=== PATIENT | male | born 1990 | race Caucasian/White ===

== ENCOUNTER 2021-06-25 10:01 | Emergency (ER) | payer MEDICAID, OTHER ==
[~2021-06-25] VITALS: Ht 177.8 cm; Wt 98.0 kg
[~2021-06-25 10:01] MED LIST: DIAZ5TAB4; HYDR-3972; IBUP-1955
[2021-06-25] MEDS ORDERED: BUPRENORPHINE HCL 2 MG TAB.SUBL SL ONE ×2 (10:30→10:34)
--- NOTE | 2021-06-25 10:40 | NUR ---
SS consult: SS consult requested for pt with heroin withdrawal. Pt is a 31-year-old, male. SW met with pt at his bedside in the ED. Pt was alert and oriented x4. Pt presented calm and was resting. Pt appeared appropriately groomed. [employer] officers at the bedside. Per chart pt was brought in by ambulance and [employer] officers for medical clearance on 06/25/21. Pt was given Buprenorphine by Dr. Pablo. Pt stated that he was previously living at [address] [place] [address]; [phone]. Pt has access to social support and was living with his at their private residence. Pt stated that he has no source of income. Pt stated that he has been using heroin, 2x/day and has been using the substance since age 17. Pt reported that he has had no previous treatment for heroin use in the past. Pt appears to be in the pre-contemplation stage of change for his heroin use. Pt denied hx of mental illness. Pt denied SI/HI. SW offered the pt resources for medication-assisted treatment and addiction resources. Pt accepted the resources and thanked SW. Pt will be D/C with [employer] officers. PLAN: Pt will be D/C with [employer] officers. No further SS intervention at this time, however, SW will remain available as needed. RESOURCES: [facility]: [address] [place] [address] Intake hours: 5:45am-9:00am, walk-ins Monday, Monday, [facility]: [address] [place] [address] Intake hours: 5:45am-12:30pm, Monday and [facility]: [address] [place] [address] Intake hours: 8:00am-2:00pm, Monday through Monday Substance use resources provided included: [facility] Substance Abuse Self-Helpline (SAS) ; [facility] [address] [place] [address] ; [facility] [address] [facility] [address] ; [facility] [address] [facility] [address] ; [facility] [address] [facility] [address] ; [facility] [address] [facility] [id number] ; [facility] [place]; [facility] [place]; [facility] [place]; Alcoholics Anonymous -[facility]
--- NOTE | 2021-06-25 10:44 | NUR ---
BIBRA81/PD FOR MEDICAL CLEARANCE C/O BODYACHE,NAUSEA/VOMITING X TODAY. ZOFRAN 4MG ODT GIVEN TYPE INSPECTOR. PATIENT A/OX4, BREATHING EVEN AND UNLABORED, NO SOB NOTED, NO TREMORS. NEEDS ATTENDED. PD AT BEDSIDE.
--- NOTE | 2021-06-25 10:49 | NUR ---
[employer] AT BEDSIDE FOR EVAL.
[2021-06-25 12:15] VITALS: BP 138/75
[2021-06-25] MEDS ORDERED: NALO4SPR NS (12:34)
[2021-06-25] MEDS ORDERED: ONDA4TAB5 PO (12:34)
== END 2021-06-25 12:40 ==
LOC: ER 10:05
DX: F11.23 Opioid dependence with withdrawal (principal); M54.9 Dorsalgia, unspecified; F17.200 Nicotine dependence, unspecified, uncomplicated; G89.29 Other chronic pain; Z90.89 Acquired absence of other organs; Z79.899 Other long term (current) drug therapy